=== PATIENT | female | born 1995 | race Hispanic/Latino ===

== ENCOUNTER 2018-06-04 13:11 | Emergency (ER) | payer MEDICAID, OTHER | END 2018-06-04 13:52 | disposition home or self-care (01) | LOC: EDH 13:11 | DX: J06.9 Acute upper respiratory infection, unspecified (principal); J30.9 Allergic rhinitis, unspecified; B35.4 Tinea corporis; R11.10 Vomiting, unspecified; Z72.0 Tobacco use ==

== ENCOUNTER 2018-10-04 13:55 | Emergency (ER) | payer SELFPAY ==
[2018-10-04 14:28] LABS: APPEARANCE,URINE Clear (CLEAR); BILIRUBIN,URINE Negative (NEGATIVE); COLOR,URINE Yellow (YELLOW); GLUCOSE, URINE (UA) Negative (NEGATIVE); KETONES,URINE Negative (NEGATIVE); LEUKOCYTE ESTERASE ,URINE Trace (NEGATIVE); NITRATE,URINE Negative (NEGATIVE); OCCULT BLOOD,URINE Negative (NEGATIVE); PROTEIN,URINE Negative (NEGATIVE)
[2018-10-04 14:35] LABS: HCG,QUAL RESULT NEGATIVE (NEGATIVE)
[2018-10-04] MEDS ORDERED: KETOROLAC TROMETHAMINE 60 MG/2 ML VIAL ONE (14:49)
[2018-10-04] MEDS ORDERED: DEXAMETHASONE SOD PHOSPHATE 10MG/ML 1ML VIAL ONE (14:49)
[2018-10-04 15:02] LABS: BACTERIA,URINE Few /HPF (None Seen); MUCUS,URINE Many LPF (None Seen); RBC,URINE 0-1 /HPF (0-1); SQUAMOUS EPITHELIAL CELL,UR 30-50 /HPF (0-2)
== END 2018-10-04 15:18 | disposition home or self-care (01) ==
LOC: EDH 13:55
DX: S29.011A Strain of muscle and tendon of front wall of thorax, initial encounter (principal); Z72.0 Tobacco use; X58.XXXA Exposure to other specified factors, initial encounter; Y93.89 Activity, other specified; Y92.89 Other specified places as the place of occurrence of the external cause; Y99.8 Other external cause status
CPT/HCPCS: 71101; 81001; 81025; 96372 ×2; 99285; J1100; J1885

== ENCOUNTER 2019-06-20 12:07 | Emergency (ER) | payer OTHER ==
[2019-06-20] MEDS ORDERED: ONDANSETRON ODT 4 MG TAB ONE (13:11)
[2019-06-20 13:57] LABS: RAPID GROUP A STREP NEGATIVE (NEGATIVE)
== END 2019-06-20 15:02 | disposition home or self-care (01) ==
LOC: EDH 12:07
DX: B34.9 Viral infection, unspecified (principal); Z90.49 Acquired absence of other specified parts of digestive tract; Z72.0 Tobacco use
CPT/HCPCS: 87804; 87880